=== PATIENT | male | born 1940 | race Asian ===

== ENCOUNTER 2023-10-15 17:14 | Inpatient (IN) | payer MEDICARE, OTHER ==
[~2023-10-15] VITALS: Ht 160 cm; Wt 73.5 kg
[2023-10-15 18:08] LABS: BASOPHILS % (AUTO) 0.4 % (0.0-2.0); EOSINOPHILS # (AUTO) 0.5 K/uL (0.0-0.7); HEMATOCRIT 35 % (39-51); HEMOGLOBIN 11.8 g/dL (13.5-17.5); LYMPHOCYTES # (AUTO) 1.3 K/uL (0.8-4.8); LYMPHOCYTES % (AUTO) 13.3 % (20.0-44.0); MEAN CORPUSCULAR HEMOGLOBIN 33 PG (26.0-33.0); MEAN CORPUSCULAR HGB CONC 34 g/dl (31.0-36.0); MEAN CORPUSCULAR VOLUME 97 fL (80-96); MONOCYTES # (AUTO) 0.9 K/uL (0.1-1.30); MONOCYTES % (AUTO) 9.1 % (2.0-12.0); NEUTROPHILS # (AUTO) 7.4 K/uL (1.8-8.9); NEUTROPHILS % (AUTO) 72.2 % (43.0-81.0); PLATELET COUNT (AUTO) 220 K/uL (150-450); RED BLOOD CELL COUNT(AUTO) 3.62 MIL/uL (4.5-6.0); RED CELL DISTRIBUTION WIDTH 14.2 % (11.5-15.0); WHITE BLOOD COUNT (AUTO) 10.2 K/uL (4.3-11.0)
[2023-10-15 18:31] LABS: CARBON DIOXIDE 29 mmol/L (21-32); CHLORIDE 98 mmol/L (98-107); CREATININE 3.1 mg/dL (0.6-1.3); GLUCOSE 149 mg/dL (74-106); POTASSIUM 3.9 mmol/L (3.5-5.1); SODIUM SERUM 138 mmol/L (136-145); UREA NITROGEN, BLOOD 28 mg/dL (7-18)
[2023-10-15 18:44] LABS: ALANINE AMINOTRANSFERASE 18 U/L (12-78); ALBUMIN 3.1 g/dL (3.4-5.0); ALKALINE PHOSPHATASE 90 U/L (46-116); ASPARTATE AMINOTRANSFERASE 15 U/L (15-37); BILIRUBIN,DIRECT 0.1 mg/dL (0.0-0.2); BILIRUBIN,TOTAL 0.6 mg/dL (0.2-1.0); NT-PRO BNP 630 pg/mL (0-125); TOTAL PROTEIN, SERUM 7.2 g/dL (6.4-8.2)
[2023-10-15] MEDS ORDERED: FINA5TAB11 PO (19:05)
[2023-10-15] MEDS ORDERED: CARV12.52 PO (19:05)
[2023-10-15] MEDS ORDERED: INSU100I26 SQ (19:05)
[2023-10-15] MEDS ORDERED: ALLO100T PO (19:05)
[2023-10-15] MEDS ORDERED: CLOP75TA15 PO (19:05)
[2023-10-15] MEDS ORDERED: LACT10SO3 PO (19:05)
[2023-10-15] MEDS ORDERED: MOME45CR3 TP (19:05)
[2023-10-15] MEDS ORDERED: CHOL500062 PO (19:05)
[2023-10-15] MEDS ORDERED: HYDR28.32 TP (19:05)
[2023-10-15] MEDS ORDERED: ALBU6.7H9 IH (19:05)
[2023-10-15] MEDS ORDERED: CLON0.1T PO (19:05)
[2023-10-15] MEDS ORDERED: QUET25TA PO (19:05)
[2023-10-15] MEDS ORDERED: NIFE-35 PO (19:05)
[2023-10-15] MEDS ORDERED: PANT40TA49 PO (19:05)
[2023-10-15] MEDS ORDERED: TIMO10DR19 EACHEYE (19:05)
[2023-10-15] MEDS ORDERED: GABA-532 PO (19:05)
[2023-10-15] MEDS ORDERED: TAMS-12 PO (19:05)
[2023-10-15] MEDS ORDERED: BRIN8DRO2 EACHEYE (19:05)
[2023-10-15] MEDS ORDERED: ATOR40TA PO (19:05)
[2023-10-15] MEDS ORDERED: NETA2.5D3 LEFTEYE (19:05)
[2023-10-15 22:00] VITALS: BP 148/65; TEMP 97.3; O2SAT 98
[2023-10-15] MEDS ORDERED: MAG HYDROX/AL HYDROX/SIMETH 30 ML UDC PO PRN (22:00)
[2023-10-15] MEDS ORDERED: ACETAMINOPHEN 325 MG TABLET PO PRN (22:00)
[2023-10-15] MEDS ORDERED: ZOLPIDEM TARTRATE 5 MG TABLET PO PRN (22:00)
[2023-10-15] MEDS ORDERED: Z GUARD REMEDY 4 OZ OINT TP PRN (22:00)
[2023-10-15] MEDS ORDERED: ONDANSETRON HCL/PF 4 MG/2 ML VIAL IVP PRN (22:00)
[2023-10-15] MEDS ORDERED: MAGNESIUM HYDROXIDE 30 ML UDC PO PRN (22:00)
[2023-10-15 22:07] VITALS: BP 148/65; TEMP 97.3; O2SAT 98
[2023-10-16] VITALS (7 sets, daily range): BP systolic 86–131; BP diastolic 44–73; TEMP 97.9–98.4; O2SAT 95–100
[2023-10-16] MEDS ORDERED: DEXTROSE 50%-WATER 50 ML DISP.SYRIN IV PRN (00:30)
[2023-10-16] MEDS ORDERED: CLONIDINE HCL 0.1 MG TABLET PO PRN (00:30)
[2023-10-16] MEDS ORDERED: ALBUTEROL SULFATE 8 GM HFA.AER.AD IH PRN ×2 (00:30→01:19)
[2023-10-16] MEDS: BLOOD SUGAR DIAGNOSTIC 1 EACH STRIP IN SCH (06:40)
[2023-10-16] MEDS: INSULIN REGULAR, HUMAN 100 UNIT/ML 3 ML VIAL SQ PRN (06:41)
[2023-10-16 06:55] LABS: BASOPHILS # (AUTO) 0.1 K/uL (0.0-0.2); BASOPHILS % (AUTO) 0.8 % (0.0-2.0); EOSINOPHILS # (AUTO) 0.5 K/uL (0.0-0.7); EOSINOPHILS % (AUTO) 5.4 % (0.0-6.0); HEMATOCRIT 35 % (39-51); LYMPHOCYTES # (AUTO) 1.9 K/uL (0.8-4.8); MEAN CORPUSCULAR HEMOGLOBIN 33 PG (26.0-33.0); MEAN CORPUSCULAR HGB CONC 34 g/dl (31.0-36.0); MEAN CORPUSCULAR VOLUME 97 fL (80-96); MONOCYTES # (AUTO) 0.8 K/uL (0.1-1.30); NEUTROPHILS # (AUTO) 5.3 K/uL (1.8-8.9); NEUTROPHILS % (AUTO) 62.8 % (43.0-81.0); PLATELET COUNT (AUTO) 225 K/uL (150-450); RED BLOOD CELL COUNT(AUTO) 3.65 MIL/uL (4.5-6.0); RED CELL DISTRIBUTION WIDTH 14.4 % (11.5-15.0); WHITE BLOOD COUNT (AUTO) 8.5 K/uL (4.3-11.0)
[2023-10-16] MEDS ORDERED: ALBUTEROL FS 2.5 MG/0.5 ML VIAL.NEB NEB PRN (07:00)
[2023-10-16 07:25] LABS: CALCIUM, SERUM 9.4 mg/dL (8.5-10.1); CARBON DIOXIDE 27 mmol/L (21-32); CHLORIDE 99 mmol/L (98-107); CREATININE 3.8 mg/dL (0.6-1.3); GLUCOSE 270 mg/dL (74-106); MAGNESIUM 2.2 mg/dL (1.8-2.4); PHOSPHORUS 3.6 mg/dL (2.5-4.9); POTASSIUM 3.5 mmol/L (3.5-5.1); SODIUM SERUM 137 mmol/L (136-145); UREA NITROGEN, BLOOD 33 mg/dL (7-18)
[2023-10-16] MEDS ORDERED: PANTOPRAZOLE 40 MG TABLET.DR PO SCH (07:30)
[2023-10-16] MEDS: PANTOPRAZOLE 40 MG TABLET.DR PO SCH (07:58)
[2023-10-16] MEDS: LACTULOSE 10 G/15 ML UDC (PYXIS) PO SCH (08:10)
[2023-10-16] MEDS: HEPARIN SODIUM, PORCINE 5000 UNITS/1 ML VIAL SQ SCH (08:11)
[2023-10-16] MEDS: CHOLECALCIFEROL 1,000 UNIT TABLET (VIT D3) PO SCH (08:12)
[2023-10-16] MEDS: MOMETASONE FUROATE 0.1% CREAM 15 GM TUBE TP SCH (08:13)
[2023-10-16] MEDS: GABAPENTIN 100 MG CAPSULE PO SCH (08:13)
[2023-10-16] MEDS: TIMOLOL 0.25% SOL OPHTH 10 ML BOTTLE EACHEYE SCH (08:13)
[2023-10-16] MEDS: INSULIN GLARGINE, 100 UNIT/ML CARTRIDGE SQ SCH (08:13)
[2023-10-16] MEDS: HYDROCORTISONE 1% CREAM 28.35 GM TUBE TP SCH (08:14)
[2023-10-16] MEDS: CLOPIDOGREL BISULFATE 75 MG TABLET PO SCH (08:14)
[2023-10-16] MEDS: FINASTERIDE (5 MG) 5 MG TABLET PO SCH (08:14)
[2023-10-16] MEDS: ALLOPURINOL 100 MG TABLET PO SCH (08:15)
[2023-10-16] MEDS: QUETIAPINE FUMARATE 25 MG TABLET PO SCH (08:15)
[2023-10-16] MEDS: NIFEdipine XL (30MG) 30 MG TAB PO SCH (08:16)
[2023-10-16] MEDS: CARVEDILOL 12.5 MG TABLET PO SCH (08:20)
[2023-10-16] MEDS ORDERED: TRIAMCINOLONE ACETONIDE 0.1% CR 15 GM TUBE TP SCH (09:00)
[2023-10-16] MEDS: TAMSULOSIN 0.4 MG CAP.SR.24H PO SCH (21:24)
[2023-10-16] MEDS: ATORVASTATIN 40 MG TABLET PO SCH (21:24)
[2023-10-16] MEDS ORDERED: Medication Not On Formulary EA (Netarsudil Mesylat/Latanoprost (Rocklatan 0.02%-0.005% E LEFTEYE SCH (22:00)
[2023-10-17] VITALS: BP 105/64; TEMP 97.7; O2SAT 99
[2023-10-17 04:00] VITALS: BP 132/88; TEMP 97.4; O2SAT 98
[2023-10-17 06:24] LABS: BASOPHILS # (AUTO) 0.1 K/uL (0.0-0.2); BASOPHILS % (AUTO) 1.2 % (0.0-2.0); EOSINOPHILS # (AUTO) 0.6 K/uL (0.0-0.7); EOSINOPHILS % (AUTO) 7.6 % (0.0-6.0); HEMATOCRIT 34 % (39-51); HEMOGLOBIN 11.7 g/dL (13.5-17.5); MEAN CORPUSCULAR HEMOGLOBIN 33 PG (26.0-33.0); MEAN CORPUSCULAR HGB CONC 34 g/dl (31.0-36.0); MEAN CORPUSCULAR VOLUME 98 fL (80-96); MONOCYTES # (AUTO) 0.9 K/uL (0.1-1.30); MONOCYTES % (AUTO) 11.4 % (2.0-12.0); NEUTROPHILS # (AUTO) 4.3 K/uL (1.8-8.9); NEUTROPHILS % (AUTO) 54.8 % (43.0-81.0); PLATELET COUNT (AUTO) 217 K/uL (150-450); RED BLOOD CELL COUNT(AUTO) 3.51 MIL/uL (4.5-6.0); WHITE BLOOD COUNT (AUTO) 7.8 K/uL (4.3-11.0)
[2023-10-17 06:42] LABS: ALANINE AMINOTRANSFERASE 14 U/L (12-78); ALBUMIN 2.7 g/dL (3.4-5.0); ALKALINE PHOSPHATASE 87 U/L (46-116); ASPARTATE AMINOTRANSFERASE 11 U/L (15-37); BILIRUBIN,TOTAL 0.2 mg/dL (0.2-1.0); CALCIUM, SERUM 8.8 mg/dL (8.5-10.1); CARBON DIOXIDE 27 mmol/L (21-32); CHLORIDE 102 mmol/L (98-107); CREATININE 3.3 mg/dL (0.6-1.3); GLUCOSE 277 mg/dL (74-106); MAGNESIUM 2.1 mg/dL (1.8-2.4); PHOSPHORUS 3.4 mg/dL (2.5-4.9); POTASSIUM 3.3 mmol/L (3.5-5.1); SODIUM SERUM 140 mmol/L (136-145); TOTAL PROTEIN, SERUM 6.4 g/dL (6.4-8.2); UREA NITROGEN, BLOOD 25 mg/dL (7-18)
[2023-10-17 08:00] VITALS: BP 115/62; TEMP 98.1; O2SAT 95
[2023-10-17 16:00] VITALS: BP 149/82; TEMP 98.1; O2SAT 98
[2023-10-17 20:00] VITALS: BP 109/54; TEMP 98.1; O2SAT 96
[2023-10-18 08:07] LABS: HEPATITIS B SURFACE AB Reactive (.)
== END 2023-10-17 22:00 | disposition home or self-care (01) | DRG 640 ==
LOC: ER 17:18 → TELE 19:49 → MED 10-17 10:06
PROVIDERS: ADMIT Student in an Organized Health Care Education/Training Program; ATTEND Nurse Practitioner Acute Care
PROC: 5A1D70Z Performance of Urinary Filtration, Intermittent, Less than 6 Hours Per Day (ICD-10-PCS; principal; 2023-10-17)
DX: E86.9 Volume depletion, unspecified (principal); N18.6 End stage renal disease; I12.0 Hypertensive chronic kidney disease with stage 5 chronic kidney disease or end stage renal disease; E87.8 Other disorders of electrolyte and fluid balance, not elsewhere classified; E11.22 Type 2 diabetes mellitus with diabetic chronic kidney disease; Z99.2 Dependence on renal dialysis; M89.8X9 Other specified disorders of bone, unspecified site; D64.9 Anemia, unspecified; N40.0 Benign prostatic hyperplasia without lower urinary tract symptoms; Z79.02 Long term (current) use of antithrombotics/antiplatelets; Z79.4 Long term (current) use of insulin; Z79.899 Other long term (current) drug therapy; Z79.51 Long term (current) use of inhaled steroids; E11.65 Type 2 diabetes mellitus with hyperglycemia; I95.89 Other hypotension
CPT/HCPCS: 36415; 71045-TC; 80048-TC; 80053-TC; 80061-TC; 80076-TC; 82962-TC; 83735-TC; 83880; 84100-TC; 84439-TC; 84443-TC; 84484-TC; 85025-TC; 86706; 87340; 90935-TC; 93307-TC; 97112-TC; 97116-TC; 97530-TC; G0378; J1644; J1815; J7030